=== PATIENT | male | born 1975 | race African-American/Black ===

== ENCOUNTER 2021-07-04 14:53 | Emergency (ER) | payer OTHER | END 2021-07-04 15:45 | disposition home or self-care (01) | LOC: CSHERS 14:53 | DX: R60.0 Localized edema (principal); Z76.0 Encounter for issue of repeat prescription; I10 Essential (primary) hypertension; Z79.82 Long term (current) use of aspirin; Z79.899 Other long term (current) drug therapy | CPT/HCPCS: 99283 ==